=== PATIENT | female | born 1990 | race Caucasian/White ===

== ENCOUNTER 2019-06-12 18:00 | Emergency (ER) | payer MEDICAID ==
[~2019-06-12] VITALS: Wt 61.4 kg
[~2019-06-12 18:00] MED LIST: FERR240T9 PO; IBUP-1542 PO; PREN-39 PO
[2019-06-12] MEDS ORDERED: KETOROLAC 60 MG INJ IM STA (18:50)
[2019-06-12] MEDS ORDERED: KETOROLAC 30 MG INJ IV STA (18:52)
[2019-06-12 20:33] VITALS: BP 102/70; PULSE 67; RESP 14
== END 2019-06-12 20:34 | disposition home or self-care (01) ==
LOC: E/R 18:00
DX: R07.89 Other chest pain (principal)
CPT/HCPCS: 71045; 81025; 93005; 96374; J1885; Z7502